=== PATIENT | female | born 1955 | race Caucasian/White ===

== ENCOUNTER 2017-06-22 04:00 | Observation (INO) | payer BC ==
[2017-06-20 04:00] VITALS: BP 98/51; PULSE 68; RESP 18; TEMP 98.4; O2SAT 97
[~2017-06-22 04:00] MED LIST: ASPI-110 PO; CELE10TA PO; LISI-515 PO
[2017-06-22 07:22] VITALS: BP_SYST 151; BP_SYST 94; BP_DIAS 50; BP_DIAS 78; PULSE 74; RESP 18; TEMP 98.4; O2SAT 97
[2017-06-22 07:25] LABS: CREATINE KINASE 45 U/L (26-192)
[2017-06-22] MEDS ORDERED: ERGO2000 PO (07:29)
[2017-06-22] MEDS ORDERED: MULTTAB67 PO (07:29)
[2017-06-22] MEDS ORDERED: ANAS1 PO (07:29)
[2017-06-22] MEDS ORDERED: PRIL10PO (07:29)
[2017-06-22 07:31] VITALS: PULSE 72
[2017-06-22] MEDS ORDERED: SODIUM CHLORID 0.9% 500 ML INJ 500 ML IV ONE ×2 (08:00→10:15)
--- NOTE | 2017-06-22 08:34 | HHI.HP ---
HPI Primary Care Physician Non-Staff Chief Complaint Chest pain History of Present Illness This is a 61-year-old female that presented to the [facility] the ED to evaluate chest discomfort. She states she's had the discomfort about 3 times over the last year. She states that it as a tightness in his in the left side her chest and radiates to the jaw. His last 2-3 minutes. A disease and not associated with activity. And 3 nights ago she had a similar discomfort. It lasted about an hour. She describes as a band tightening across her chest. No associated symptoms. And lastly while she was at her sister's the same discomfort occurred lasting about a minute or 2 but continue to recur for an hour. She recalls being a little diaphoretic. No nausea shortness of breath. Denies history of CAD. Cannot recall any recent stress testing. She also states that over last several months she has occasional dizziness. She will check her blood pressure and find that her blood pressure will be in the 70s to 80s. She takes lisinopril 20 mg daily. Review of Systems General: Patient denies fevers, chills recent, and recent travel HEENT: Patient denies headache, sore throat, difficulty swallowing. Cardiovascular: Has the chest discomfort as mentioned above. Denies sensation of heart beating rapidly or irregularly. No syncope. She was diaphoretic yesterday. Respiratory: Denies shortness of breath or inspirational chest discomfort. Denies coughing wheezing or hemoptysis. GI: Patient denies nausea, vomiting, diarrhea, abdominal pain, bloody stools. Musculoskeletal: Patient denies joint pain or edema. Denies calf pain or edema. Neurovascular: Patient denies numbness, tingling, weakness in extremities. Denies headache. Endocrine: Denies polyuria and polydipsia. Hematologic: Denies easy bruising. Skin: Denies rash or itching. Past Family Social History Allergies: Coded Allergies: No Known Allergies (Unverified , 06/21/17) Past Medical History Hypertension. Breast cancer 2014 with lumpectomy and chemotherapy. Tobacco abuse and continues to smoke 1 pack of cigarettes daily for 25 years. Denies hyperlipidemia, diabetes, and known CAD. Past Surgical History Breast lumpectomy, cholecystectomy, and tonsillectomy. Reported Medications Reported Meds & Active Scripts Active Reported Arimidex (Anastrozole) 1 Mg Tab 1 Mg PO DAILY Prilosec (Omeprazole Magnesium) 10 Mg Pow Vitamin D2 (Ergocalciferol) 2,000 Unit Tab 2,000 Units PO DAILY Multiple Vitamin 1 Tab 1 Tab PO DAILY Aspirin 81 (Aspirin) 81 Mg Tabdr 81 Mg PO DAILY Celexa (Citalopram Hydrobromide) 10 Mg Tab 10 Mg PO DAILY Lisinopril 20 Mg Tab 20 Mg PO DAILY Active Ordered Medications Current Medications Medications (Trade) Dose Ordered Sig/Brooke Route Start Time Stop Time Status Last Admin (NS 500 ml Inj) 500 ml @ 1,000 mls/hr NOW ONCE IV 06/22/17 08:00 06/22/17 08:29 06/22/17 08:01 Family History Denies family history of CAD. Social History Patient has smoked one pack of cigarettes daily for 25 years. Denies alcohol or illicit drugs. Physical Exam Vital Signs Vital Signs Date Time Temp Pulse Resp B/P Pulse Ox O2 Delivery O2 Flow Rate FiO2 06/22/17 07:31 72 06/22/17 07:22 98.4 74 18 94/50 97 06/22/17 04:51 21 Physical Exam GENERAL: This is a well-nourished, well-developed patient, in no apparent distress. Patient speaks in clear complete sentences. Patient is pleasant. HEENT: Head is atraumatic and normocephalic. Neck is supple without lymphadenopathy and trachea is midline. No JVD or carotid bruits. CARDIOVASCULAR: Regular rate and rhythm without murmurs, gallops, or rubs. RESPIRATORY: Clear to auscultation. Breath sounds equal bilaterally. No wheezes , rales, or rhonchi. Chest wall is nontender. No use of accessory muscles. GASTROINTESTINAL: Abdomen is nontender, nondistended. Abdomen soft. No obvious pulsatile mass or bruit. No CVA tenderness. Strong femoral pulses bilaterally. Normal bowel sounds in all quadrants. MUSCULOSKELETAL: Patient is moving upper and lower extremities freely. No calf tenderness or edema, no Homans sign. Strong pulses in upper and lower extremities. NEUROLOGICAL: Patient is alert and oriented. Cranial nerves 2-12 are grossly intact. No focal deficits and speech is clear. SKIN: No rash and turgor is normal. Laboratory Laboratory Tests Test 06/22/17 05:00 Total Creatine Kinase 45 Troponin I LESS THAN 0.02 Course EKGs have been sinus rhythm without significant ST segment depressions or elevations. Assessment and Plan Assessment and Plan * Chest pain: Patient has had serial cardiac enzymes and EKGs for ruling out purposes and was seen by Dr. Reynaga cardiology in the chest pain center. She will have a Cecilio protocol ETT and be discharged if stress test is nonischemic. * Hypertension: Patient states that home she has been hypotensive and feeling dizzy at times. We will decrease her lisinopril dose. She is to keep a journal and discuss this with her physician in one week. * Tobacco abuse: Patient has been counseled on importance of smoking cessation. Patient is stable at this time. She is agreeable to this plan. Dylan Bennett Jun 22, 2017 08:34
[2017-06-22 08:41] VITALS: BP 98/62; PULSE 77; RESP 17; TEMP 98.7; O2SAT 95
[2017-06-22] MEDS ORDERED: LISI-515 PO (10:03)
--- NOTE | 2017-06-22 10:06 | HHI.DCPOC ---
Discharge Care Plan Diagnosis: (1) Chest pain (2) Hypertension (3) Tobacco abuse Goals to Promote Your Health * To prevent worsening of your condition and complications * To maintain your health at the optimal level Directions to Meet Your Goals Take your medications as prescribed Follow your dietary instruction Follow activity as directed Keep your appointments as scheduled Take your immunizations and boosters as scheduled If your symptoms worsen call your PCP, if no PCP go to Urgent Care Center or Emergency Room Smoking is Dangerous to Your Health. Avoid second hand smoke Call the 24-hour hour crisis hotline for domestic abuse at Dylan Bennett Jun 22, 2017 10:06
--- NOTE | 2017-06-22 17:31 | TR ---
Date Performed: 06/22/2017 Time Performed: 09:27:42 DOCTOR: Petra Reynaga DRUG LIST: CLINICAL HISTORY: REASON FOR TEST: REASON FOR ENDING: OBSERVATION: CONCLUSION: TRINI PROTOCOL. NO CP. TEST STOPPED AFTER EXCEEDING GOAL HR SECONDARY TO SOB AND LEG FATIGUE.Maximum MB=281 Max HR Achieved=94.0% Maximum SV=145/78 Total Exercise Time=7:03 COMMENTS:
--- NOTE | 2017-06-22 17:32 | EKG ---
Date Performed: 06/22/2017 Time Performed: 05:32:38 PTAGE: 61 years EKG: Sinus rhythm INDETERMINATE AXIS ATYPICAL ECG Since PREVIOUS TRACING , no significant change noted PREVIOUS TRACIN06/21/2017 22.50 DOCTOR: Petra Reynaga Interpretating Date/Time 06/22/2017 17:30:01
== END 2017-06-22 13:30 | disposition home or self-care (01) ==
LOC: NEDDLT 04:00 → NEPHCDU 04:10
DX: R07.89 Other chest pain (principal); Z71.6 Tobacco abuse counseling; I10 Essential (primary) hypertension; R42 Dizziness and giddiness; F17.210 Nicotine dependence, cigarettes, uncomplicated; Z79.899 Other long term (current) drug therapy
CPT/HCPCS: 71010; 71275; 80053; 82550; 83735; 84484; 85025; 85379; 85610; 85730; 93005; 93017; 96360; 99285; G0378; J7040; Q9967